=== PATIENT | female | born 1990 ===

== ENCOUNTER 2025-03-03 09:33 | Outpatient (AMB) | payer BC, SELFPAY ==
[2025-03-03 09:35] VITALS: BMI 26.6
--- NOTE | 2025-03-03 09:35 | A.PHYSOV_ITS ---
Vital Signs 03/03/25 09:35 Height 5 ft 5 in Weight 160 lb BMI 26.6 Intake Visit Reasons: NPV ATI Ref- LBP & pelvis Intake Note: Patient is a 34 year old female here for new patient office visit. Patient was referred for low back and pelvic pain. Medical Claims Assistant Required: No Allergies amoxicillin Allergy (Unknown, Verified 03/03/25 09:40) unknown HPI Comments Details: History of Present Illness The patient is a 34 year old female presenting for evaluation of chronic lower back pain. She has a history of severe pubic symphysis pain during a past , which required the use of a wheelchair or walker and subsequent physical therapy. Her current symptoms include lower back pain that wraps around to her right hip, and she occasionally experiences a sharp pain reminiscent of her - related pain. 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 Due to her pain, she is currently on light duty at work. The pain worsens with prolonged standing and walking, and she feels it most in her hip when going upstairs. She has been in physical therapy for at least a month and uses a TENS unit for pain management. She does not take oral pain medications like Tylenol or ibuprofen. Past workup includes normal back X-rays. She also has a history of polycystic ovary syndrome (PCOS). I reviewed the referring provider's no prior to consultation. Pain Description - Location: The pain is primarily in her lower back and wraps around to her right hip and side. - Quality: Patient reports an occasional random, sharp pain. - Exacerbating Factors: Pain is worsened by standing or walking for periods of time, walking upstairs, and leaning backward. - Relieving Factors: Sitting down provides relief, as does bending forward, although forward flexion causes a pulling sensation. - Interference with function: The pain has necessitated a change to light duty at work. Results - Imaging: Patient reports prior back x-rays were normal. - Other: Patient reports a history of Polycystic Ovary Syndrome (PCOS), which was previously confirmed via ultrasound. [facility] Surgical History (Updated 03/03/25 @ 09:38 by Aline Marcum MA) Hx of tonsillectomy H/O breast augmentation Social History (Updated 03/03/25 @ 09:39 by Aline Marcum MA) Alcohol intake: current Alcohol intake frequency: holidays/special occasions only e-Cigarette/Vaping Use: Currently Using Use of substances other than those prescribed or required for medical reasons: No Review of Systems Narrative Review of Systems - Musculoskeletal: Reports lower back pain radiating to the right hip, which worsens with standing, walking, and leaning backward. - She also reports soreness in her upper back. - Denies groin pain. - Neurological: Reports occasional random, sharp pain. Physical Exam Exam Exam: Physical Exam - General: Patient observed while standing. - Back: Tenderness to palpation over the lower back bilaterally. - Lumbar extension elicits pain. - Forward flexion causes a pulling sensation. - Hips: No tenderness on palpation over the hips and no pain with hip motion. - Neurological: Patellar reflexes are normal. - Motor strength is intact in the lower extremities with foot flexion/extension and thigh flexion. - Sensation is symmetric in the lower extremities. - Straight leg raise tests are negative bilaterally for producing back pain. Vital Signs: BMI result Body Mass Index 26.6 Assessment & Plan Assessment & Plan (1) Lumbar radiculopathy: Code(s): M54.16 - Radiculopathy, lumbar region Category: Medical (2) Lumbar spondylosis: Code(s): M47.816 - Spondylosis without myelopathy or radiculopathy, lumbar region Category: Medical Plan Pain Management - Affect: The patient expressed desperation for a diagnosis and relief from her symptoms. - Analgesia: The patient is not currently taking oral pain medications such as Tylenol or ibuprofen but uses a TENS unit at work. - Activities of Daily Living: Her pain interferes with her ability to stand and walk for prolonged periods, and she is currently on light duty at her job. - Aberrant Drug-Related Behaviors: None were discussed or observed. Plan Patient was informed and verbally consented to the use of an ambient scribe for clinic note documentation during this visit. 1. Low Back Pain The patient's chronic low back pain is suspected to be of spinal origin, potentially from a bulging disc or arthritis, despite her prior normal back X- rays. An MRI of the lumbar spine will be ordered to further evaluate the und erlying cause. The patient denied claustrophobia or having any irremovable metal in her body. If the MRI results are normal, further evaluation for sacroiliac (SI) joint pathology may be considered. A follow-up appointment will be scheduled to discuss the MRI findings and determine a treatment plan. Discussion Notes I explained to the patient that her symptoms are most likely originating from he r spine, such as from a bulging disc or arthritis, rather than from a gynecological issue like her PCOS. I informed her that while her previous X-rays were normal, they do not show soft tissues, which is why an MRI of her lumbar spine is the recommended next step. I will place the order for the MRI today, and she will return for a follow-up visit after the scan is complete to review the results and discuss potential treatments. I acknowledged her desire for a definitive diagnosis to explain her long-standing pain and noted that an MRI could provide that clarity. Patient Instructions - Please proceed with scheduling and completing the MRI of your lumbar spine that I have ordered for you. - After the MRI is completed, please schedule a follow-up appointment with our office to discuss the results and next steps for treatment. - You may continue to use your TENS unit for pain. - You can take [id number] medications like Tylenol or ibuprofen as needed for pain, as you have them at home. Orders: Orders MR lumbar spine wo con Today M51.16 - Intervertebral disc disorders with radiculopathy, lumbar region Coding Level of Care Code Tele New Pt Level 4 (85452) Diagnoses Lumbar radiculopathy M54.16 Lumbar spondylosis M47.816
== END 2025-03-03 10:09 | disposition home or self-care (01) ==
LOC: HO.HPHYS 09:33
PROVIDERS: Visit Provider Physician Assistant
DX: M54.16 Radiculopathy, lumbar region (principal); M47.816 Spondylosis without myelopathy or radiculopathy, lumbar region
CPT/HCPCS: 99204